=== PATIENT | male | born 1970 | race Caucasian/White ===

== ENCOUNTER 2017-10-25 09:41 | Emergency (ER) | payer MEDICAID ==
[~2017-10-25] VITALS: Ht 167.6 cm; Wt 98.0 kg
[2017-10-25] MEDS ORDERED: DiphenhydrAMINE HCL 25 MG CAPSULE PO ONE (10:45)
[2017-10-25 10:46] VITALS: BP 133/89
== END 2017-10-25 11:20 | disposition home or self-care (01) ==
LOC: EMS 09:48
DX: S60.562A Insect bite (nonvenomous) of left hand, initial encounter (principal); S60.561A Insect bite (nonvenomous) of right hand, initial encounter; S30.860A Insect bite (nonvenomous) of lower back and pelvis, initial encounter; S80.862A Insect bite (nonvenomous), left lower leg, initial encounter; S80.861A Insect bite (nonvenomous), right lower leg, initial encounter; F17.210 Nicotine dependence, cigarettes, uncomplicated; W57.XXXA Bitten or stung by nonvenomous insect and other nonvenomous arthropods, initial encounter; Y93.89 Activity, other specified; Y92.89 Other specified places as the place of occurrence of the external cause; Y99.8 Other external cause status
CPT/HCPCS: 99283